=== PATIENT | female | born 1975 | race Caucasian/White ===

== ENCOUNTER 2017-12-10 17:23 | Emergency (ER) | payer MEDICAID ==
[~2017-12-10] VITALS: Ht 170.2 cm; Wt 67.6 kg
[2017-12-10] MEDS ORDERED: OXYC10 PO (19:11)
[2017-12-10] MEDS ORDERED: ALPR0.5T8 PO (19:11)
[2017-12-10 19:22] VITALS: BP 111/88
[2017-12-10] MEDS ORDERED: LORazepam 2 MG TABLET PO ONE (20:15)
== END 2017-12-10 21:37 | disposition home or self-care (01) ==
LOC: EMS 17:26
DX: F31.9 Bipolar disorder, unspecified (principal)
CPT/HCPCS: 99284